=== PATIENT | male | born 1965 | race Hispanic/Latino ===

== ENCOUNTER 2020-12-26 17:26 | Inpatient (IN) | payer OTHER, MEDICARE ==
[~2020-12-26] VITALS: Ht 175.3 cm; Wt 77.1 kg
[2020-12-26] MEDS ORDERED: SODIUM CHLORIDE 0.9% 1000ML 1,000 ML IV STA (17:29)
[2020-12-26] MEDS ORDERED: ASPIRIN 81 MG CHEW TAB PO ONE (17:30)
[2020-12-26] MEDS ORDERED: MECLIZINE HCL 12.5 MG TAB PO STA (17:30)
[2020-12-26 17:54] LABS: BASOPHILS % 0.4 % (0.0-1.0); EOSINOPHILS # (AUTO) 0.1 (0.0-0.4); EOSINOPHILS % 1.8 % (0.0-6.0); MEAN CORPUSCULAR HEMOGLOBIN 29.6 pg (28-32); MEAN CORPUSCULAR HGB CONC 31.8 g/dL (31-35); MEAN CORPUSCULAR VOLUME 93.1 fL (81-99); MONOCYTES # (AUTO) 0.4 (0.2-0.8); MONOCYTES % 7.7 % (4.4-11.3); NEUTROPHILS # (AUTO) 3.5 (2.1-6.9); NEUTROPHILS % 69.7 % (38.7-80.0); PLATELET COUNT 84 x10e3/uL (140-360); RED BLOOD COUNT 1.59 x10e6/uL (4.3-5.7); RED CELL DISTRIBUTION WIDTH 15.6 % (11.7-14.4)
[2020-12-26 17:58] LABS: HEMATOCRIT 14.8 % (38.2-49.6); HEMOGLOBIN 4.7 g/dL (14.0-18.0)
[2020-12-26] MEDS ORDERED: SODIUM CHLORIDE 0.9% 250ML 250 ML IV ONE (18:00)
[2020-12-26] MEDS ORDERED: ONDANSETRON HCL INJ 2MG/ML 2ML 2 MG/ML VIAL IV PRN (18:15)
[2020-12-26] MEDS ORDERED: HYDRALAZINE HC100 MG PO (18:22)
[2020-12-26] MEDS ORDERED: AMLODIPINE BESY10 MG PO (18:22)
[2020-12-26] MEDS ORDERED: LISINOPRIL40 MG PO (18:22)
[2020-12-26] MEDS ORDERED: ATORVASTATIN CA40 MG PO (18:22)
[2020-12-26] MEDS ORDERED: CARVEDILOL25 MG PO (18:22)
[2020-12-26] MEDS ORDERED: HUMULIN R100 UNIT/2 INJ (18:22)
[2020-12-26] MEDS ORDERED: [UNRECOGNIZED DRUG - OTHER] PO (18:22)
[2020-12-26 18:26] LABS: ALBUMIN 3.1 g/dL (3.5-5.0); ALBUMIN/GLOBULIN RATIO 1.2 (0.8-2.0); ANION GAP 19.5 mmol/L (8-16); CALCIUM 8.5 mg/dL (8.4-10.2); CREATININE, SERUM 8.17 mg/dL (0.72-1.25); POTASSIUM 4.5 mmol/L (3.5-5.1)
[2020-12-26 18:29] LABS: CREATINE KINASE MB 1.4 ng/mL (0-5.0)
[2020-12-26] MEDS ORDERED: AURYXIA210 MG PO (18:31)
[2020-12-26] MEDS ORDERED: LEVEMIR FL100 UNIT/1 SC (18:31)
[2020-12-26] MEDS ORDERED: DEXTROSE 50% SYRINGE 50 ML IV STA (18:34)
[2020-12-26] MEDS ORDERED: DEXTROSE 50% SYRINGE 50 ML IV ONE (18:40)
[2020-12-26] MEDS ORDERED: FAMOTIDINE 20 MG/2 ML VIAL IV ONE (19:15)
[2020-12-26 20:10] VITALS: BP 131/62
[2020-12-26 20:18] VITALS: BP 119/57
[2020-12-26 21:05] VITALS: BP 119/57
[2020-12-26] MEDS ORDERED: DEXTROSE 50% SYRINGE 50 ML IV PRN (21:15)
[2020-12-26 21:16] LABS: HYPOCHROMASIA SLIGHT
[2020-12-26 21:17] LABS: PLATELET ESTIMATE MODERATELY DECREASED; PLATELET MORPHOLOGY COMMENT NORMAL
[2020-12-26] MEDS ORDERED: SODIUM CHLORIDE 0.9% 250ML 250 ML ONE (21:22)
[2020-12-27] VITALS (8 sets, daily range): BP systolic 110–154; BP diastolic 67–78
[2020-12-27 00:02] LABS: FERRITIN 1032.14 ng/mL (21.81-274.66)
[2020-12-27] MEDS: FUROSEMIDE INJ 10 MG/ML 2 ML VIAL IV PRN ×2 (01:50→06:18)
[2020-12-27] MEDS ORDERED: DOCUSATE SODIUM 100 MG CAP PO PRN (06:45)
[2020-12-27] MEDS ORDERED: ZOLPIDEM TARTRATE 5 MG TAB PO PRN (06:45)
[2020-12-27 08:16] LABS: BASOPHILS % 0.4 % (0.0-1.0); EOSINOPHILS # (AUTO) 0.1 (0.0-0.4); EOSINOPHILS % 2.6 % (0.0-6.0); LYMPHOCYTES % 18.4 % (18.0-39.1); MEAN CORPUSCULAR HEMOGLOBIN 29.6 pg (28-32); MEAN CORPUSCULAR HGB CONC 32.6 g/dL (31-35); MEAN CORPUSCULAR VOLUME 90.6 fL (81-99); MONOCYTES # (AUTO) 0.3 (0.2-0.8); MONOCYTES % 6.3 % (4.4-11.3); NEUTROPHILS # (AUTO) 3.9 (2.1-6.9); NEUTROPHILS % 71.7 % (38.7-80.0); PLATELET COUNT 65 x10e3/uL (140-360); RED BLOOD COUNT 2.03 x10e6/uL (4.3-5.7); RED CELL DISTRIBUTION WIDTH 15.8 % (11.7-14.4)
[2020-12-27 08:25] LABS: HEMATOCRIT 18.4 % (38.2-49.6)
[2020-12-27 08:56] LABS: CREATINE KINASE MB 1.2 ng/mL (0-5.0)
[2020-12-27] MEDS ORDERED: SODIUM CHLORIDE 0.9% 250ML 250 ML IV ONE (09:00)
[2020-12-27 09:15] LABS: ALBUMIN/GLOBULIN RATIO 1.3 (0.8-2.0); ANION GAP 20.8 mmol/L (8-16); CALCIUM 8.1 mg/dL (8.4-10.2); CREATININE, SERUM 8.92 mg/dL (0.72-1.25); POTASSIUM 4.8 mmol/L (3.5-5.1)
[2020-12-27] MEDS: AMLODIPINE BESYLATE 10 MG TAB PO SCH (09:15)
[2020-12-27] MEDS: CARVEDILOL 12.5 MG TAB PO SCH (09:15)
[2020-12-27] MEDS: PANTOPRAZOLE 40 MG 10ML VIAL IV SCH ×2 (09:15→18:49)
[2020-12-27] MEDS: LISINOPRIL 20 MG TAB PO SCH (09:15)
[2020-12-27] MEDS: HYDRALAZINE HCL 100 MG TABLET PO SCH ×2 (09:15→18:49)
[2020-12-27] MEDS: FERRIC CITRATE PO SCH ×3 (09:15→18:49)
[2020-12-27 09:25] LABS: CHOL/HDL RATIO 2.1 (3.9-4.7)
[2020-12-27] MEDS: ACETAMINOPHEN 325 MG TAB PO PRN (09:26)
[2020-12-27] MEDS ORDERED: ONDANSETRON HCL 4 MG ORAL DISINTEGRATING TAB PO PRN (10:30)
[2020-12-27] MEDS ORDERED: SODIUM CHLORIDE 0.9% 1000ML 2,000 ML ONE (13:14)
[2020-12-27 14:48] LABS: CREATINE KINASE MB 1.3 ng/mL (0-5.0)
[2020-12-27] MEDS: ATORVASTATIN 40 MG TAB PO SCH (19:55)
[2020-12-27] MEDS ORDERED: PEG (High)/E-LYTE SOLN 4,000 ML BTL PO ONE (22:30)
[2020-12-27] MEDS ORDERED: BISACODYL 5 MG TAB EC PO ONE ×2 (22:30→23:45)
[2020-12-28] VITALS (8 sets, daily range): BP systolic 145–172; BP diastolic 68–79
[2020-12-28 06:39] LABS: ALBUMIN/GLOBULIN RATIO 1.2 (0.8-2.0); ANION GAP 15.5 mmol/L (8-16); CALCIUM 8.5 mg/dL (8.4-10.2); CREATININE, SERUM 6.05 mg/dL (0.72-1.25); POTASSIUM 4.5 mmol/L (3.5-5.1)
[2020-12-28] MEDS: FERRIC CITRATE PO SCH ×3 (08:00→15:59)
[2020-12-28 08:05] LABS: BASOPHILS % 0.6 % (0.0-1.0); EOSINOPHILS # (AUTO) 0.3 (0.0-0.4); EOSINOPHILS % 3.5 % (0.0-6.0); HEMATOCRIT 25.8 % (38.2-49.6); HEMOGLOBIN 8.5 g/dL (14.0-18.0); LYMPHOCYTES # (AUTO) 0.8 (1.0-3.2); LYMPHOCYTES % 10.8 % (18.0-39.1); MEAN CORPUSCULAR HEMOGLOBIN 29.8 pg (28-32); MEAN CORPUSCULAR HGB CONC 32.9 g/dL (31-35); MEAN CORPUSCULAR VOLUME 90.5 fL (81-99); MONOCYTES # (AUTO) 0.5 (0.2-0.8); MONOCYTES % 6.4 % (4.4-11.3); NEUTROPHILS # (AUTO) 5.7 (2.1-6.9); NEUTROPHILS % 78.1 % (38.7-80.0); PLATELET COUNT 72 x10e3/uL (140-360); RED BLOOD COUNT 2.85 x10e6/uL (4.3-5.7); RED CELL DISTRIBUTION WIDTH 15.1 % (11.7-14.4)
[2020-12-28] MEDS: PANTOPRAZOLE 40 MG 10ML VIAL IV SCH ×2 (08:58→22:21)
[2020-12-28] MEDS: LISINOPRIL 20 MG TAB PO SCH (08:59)
[2020-12-28] MEDS: HYDRALAZINE HCL 100 MG TABLET PO SCH ×2 (08:59→17:00)
[2020-12-28] MEDS: CARVEDILOL 12.5 MG TAB PO SCH (08:59)
[2020-12-28] MEDS: AMLODIPINE BESYLATE 10 MG TAB PO SCH (08:59)
[2020-12-28] MEDS ORDERED: PROPOFOL IV EMULSION 10 MG/ML 20 ML VIAL ONE (13:17)
[2020-12-28] MEDS ORDERED: GLUCAGON FOR INJ 1 MG VIAL ONE (13:17)
[2020-12-28] MEDS ORDERED: HYOSCYAMINE SULFATE 0.5 MG/ML INJ ONE ×2 (13:17→20:00)
[2020-12-28] MEDS ORDERED: FENTANYL CITRATE/PF 100MCG/2 ML INJ ONE (13:41)
[2020-12-28] MEDS ORDERED: MIDAZOLAM HCL 2 MG/2 ML VIAL ONE (13:41)
[2020-12-28] MEDS ORDERED: EPINEPHRINE HCL 1:1000 1ML 1 MG/ML AMP ONE (20:13)
[2020-12-28] MEDS ORDERED: SODIUM CHLORIDE 0.9% 100 ML ONE (20:15)
[2020-12-28] MEDS: ATORVASTATIN 40 MG TAB PO SCH (22:21)
[2020-12-29] VITALS: BP 125/61
[2020-12-29 04:00] VITALS: BP 175/81
[2020-12-29 06:06] LABS: BASOPHILS % 0.2 % (0.0-1.0); EOSINOPHILS # (AUTO) 0.2 (0.0-0.4); EOSINOPHILS % 2.4 % (0.0-6.0); HEMATOCRIT 25.9 % (38.2-49.6); HEMOGLOBIN 8.7 g/dL (14.0-18.0); LYMPHOCYTES # (AUTO) 0.7 (1.0-3.2); LYMPHOCYTES % 8.7 % (18.0-39.1); MEAN CORPUSCULAR HEMOGLOBIN 30.2 pg (28-32); MEAN CORPUSCULAR HGB CONC 33.6 g/dL (31-35); MEAN CORPUSCULAR VOLUME 89.9 fL (81-99); MONOCYTES # (AUTO) 0.5 (0.2-0.8); MONOCYTES % 6.2 % (4.4-11.3); NEUTROPHILS # (AUTO) 6.7 (2.1-6.9); PLATELET COUNT 76 x10e3/uL (140-360); RED BLOOD COUNT 2.88 x10e6/uL (4.3-5.7)
[2020-12-29 06:31] LABS: ALBUMIN/GLOBULIN RATIO 1.2 (0.8-2.0); ANION GAP 18.4 mmol/L (8-16); CALCIUM 8.6 mg/dL (8.4-10.2); CREATININE, SERUM 8.1 mg/dL (0.72-1.25); POTASSIUM 4.4 mmol/L (3.5-5.1)
[2020-12-29] MEDS ORDERED: SODIUM CHLORIDE 0.9% 1000ML 2,000 ML ONE (07:40)
[2020-12-29 07:42] VITALS: BP 180/74
[2020-12-29] MEDS: FERRIC CITRATE PO SCH ×2 (08:00→12:00)
[2020-12-29] MEDS: HYDRALAZINE HCL 100 MG TABLET PO SCH ×2 (08:24→16:43)
[2020-12-29] MEDS: LISINOPRIL 20 MG TAB PO SCH (08:24)
[2020-12-29] MEDS: AMLODIPINE BESYLATE 10 MG TAB PO SCH (08:24)
[2020-12-29] MEDS: CARVEDILOL 12.5 MG TAB PO SCH (08:24)
[2020-12-29] MEDS: ACETAMINOPHEN 325 MG TAB PO PRN (08:40)
[2020-12-29 08:55] LABS: ANISOCYTOSIS SLIGHT; EOSINOPHILS % (MANUAL) 4 % (0-7); LYMPHOCYTES % (MANUAL) 8 % (19-48); MONOCYTES % (MANUAL) 3 % (3.4-9.0); NEUTROPHILS % (MANUAL) 84 % (40-74); PLATELET ESTIMATE MODERATELY DECREASED
[2020-12-29 08:56] LABS: PLATELET MORPHOLOGY COMMENT NORMAL
[2020-12-29 08:57] LABS: MICROCYTOSIS SLIGHT
[2020-12-29 08:58] LABS: RBC MORPHOLOGY COMMENT NORMAL
[2020-12-29] MEDS: PANTOPRAZOLE 40 MG 10ML VIAL IV SCH (09:00)
[2020-12-29 09:03] VITALS: BP 180/74
[2020-12-29] MEDS ORDERED: EPOETIN ALFA-EPBX 10,000 UNIT/ML VIAL SC ONE ×2 (11:00→15:45)
[2020-12-29 11:48] VITALS: BP 147/74
[2020-12-29] MEDS ORDERED: PANTOPRAZOLE SO40 MG PO (14:43)
[2020-12-29 15:46] VITALS: BP 158/75
== END 2020-12-29 17:36 | disposition home or self-care (01) | DRG 291 ==
LOC: ER 17:54 → ERHOLD 18:04 → MED/SURG3 19:48
PROVIDERS: ADMIT Internal Medicine; ATTEND Internal Medicine
PROC: 30243N1 Transfusion of Nonautologous Red Blood Cells into Central Vein, Percutaneous Approach (ICD-10-PCS; 2020-12-26)
PROC: 5A1D70Z Performance of Urinary Filtration, Intermittent, Less than 6 Hours Per Day (ICD-10-PCS; 2020-12-27)
PROC: 0DB78ZX Excision of Stomach, Pylorus, Via Natural or Artificial Opening Endoscopic, Diagnostic (ICD-10-PCS; 2020-12-28)
PROC: 0DBB8ZX Excision of Ileum, Via Natural or Artificial Opening Endoscopic, Diagnostic (ICD-10-PCS; principal; 2020-12-28 16:00)
DX: I13.2 Hypertensive heart and chronic kidney disease with heart failure and with stage 5 chronic kidney disease, or end stage renal disease (principal); N18.6 End stage renal disease; D62 Acute posthemorrhagic anemia; E11.649 Type 2 diabetes mellitus with hypoglycemia without coma; E11.22 Type 2 diabetes mellitus with diabetic chronic kidney disease; I50.9 Heart failure, unspecified; Z99.2 Dependence on renal dialysis; K25.9 Gastric ulcer, unspecified as acute or chronic, without hemorrhage or perforation; Z20.822 Contact with and (suspected) exposure to COVID-19; D63.1 Anemia in chronic kidney disease; D69.6 Thrombocytopenia, unspecified; E78.00 Pure hypercholesterolemia, unspecified; K20.90 Esophagitis, unspecified without bleeding; F17.200 Nicotine dependence, unspecified, uncomplicated
CPT/HCPCS: 36415; 43239; 45378; 70450; 71045; 80053; 80061; 82270; 82550; 82553; 82607; 82728; 82746; 82948; 83036; 83540; 83880; 84466; 84484; 85025; 85045; 86705; 86706; 86850; 86900; 86920; 87340; 88305; 88312; 93005; 99284; J0171; J1610; J1940; J1980; J2250; J3010; J7030; J7050; J7799; P9016; U0002